=== PATIENT | male | born 1970 | race Caucasian/White ===

== ENCOUNTER 2016-07-28 14:57 | Emergency (ER) | payer MEDICAID, OTHER ==
[~2016-07-28 14:57] MED LIST: AMOX500T PO; ULTR50TA PO; Z.0.NO CURRENT MEDS
[2016-07-28 15:00] VITALS: BP 100/67; PULSE 91; RESP 14; TEMP 98.1
[2016-07-28 16:05] VITALS: O2SAT 98
--- NOTE | 2016-07-28 16:10 | PD ---
HPI Chief Complaint: Lump, Cyst, Hernia Time Seen by Provider: 16:02 Travel History International Travel<30 days: No Contact w/Intl Traveler<30days: No Traveled to known affect area: No History of Present Illness HPI 46 year old male presents to the emergency department for evaluation of pain to his gluteal cleft. Patient states this started approximately 4 days ago. He states he has had intermittent similar issues in the past. He states he has had I&D procedures done. He denies any fevers. Patient is deaf and communicates with sign language. History and physical are done the official room designer. Patient denies having any chronic medical problems or taking any prescribed medications. He has no known allergies. Patient currently rates pain 10/13. No other complaints. [facility] Social History Alcohol Use: No Tobacco Use: No Substance Use: No Allergies-Medications (Allergen,Severity, Reaction): Coded Allergies: No Known Allergies (Unverified , 07/28/16) Reported Meds & Prescriptions Reported Meds & Active Scripts Active Lortab (Hydrocodone-Acetaminophen) 5-325 Mg Tab 1 Tab PO Q6H PRN Review of Systems Except as stated in HPI: all other systems reviewed are Neg Physical Exam Narrative GENERAL: Well-developed well-nourished male patient, ambulatory. Afebrile. SKIN: Warm and dry. Pilonidal cyst noted that measures approximately [-]. HEAD: Normocephalic. Atraumatic. EYES: No scleral icterus. No injection or drainage. NECK: Supple, trachea midline. No JVD or lymphadenopathy. CARDIOVASCULAR: Regular rate and rhythm without murmurs, gallops, or rubs. RESPIRATORY: Breath sounds equal bilaterally. No accessory muscle use. GASTROINTESTINAL: Abdomen soft, non-tender, nondistended. MUSCULOSKELETAL: No cyanosis, or edema. Data Data Last Documented VS Vital Signs Date Time Temp Pulse Resp B/P Pulse Ox O2 Delivery O2 Flow Rate FiO2 07/28/16 16:05 98 Room Air 07/28/16 15:00 98.1 91 14 100/67 Orders Wound Culture And Gram Stain (07/28/16 16:02) Lidocai-Epi 1%-1:100,000 Inj (Xylocaine- (07/28/16 16:15) Acetamin-Hydrocod 325-7.5 Mg ([place] 7.5 (07/28/16 17:15) [facility] Medical Decision Making Medical Screen Exam Complete: Yes Emergency Medical Condition: Yes Medical Record Reviewed: Yes Differential Diagnosis Pilonidal cyst versus abscess versus cellulitis Narrative Course 46 year old male presents to the emergency department for evaluation of pain and swelling to the gluteal cleft. Physical exam is consistent with a pilonidal cyst. History and physical are done with the official clerical assigner. He does give consent for I&D procedure. Patient will be discharged with a prescription for ibuprofen and clindamycin. He is instructed on proper wound care. I&D procedure was completed. Minimal output was able to be obtained. Patient is instructed to follow-up with colorectal surgeon. He is given Lortab and clindamycin in the emergency department. Patient will be discharged with a prescription for Lortab and clindamycin. Procedures Procedure Narrative INCISION AND DRAINAGE OF ABSCESS: The area was prepped and was sterilely draped. A subcutaneous wheal of 1% Xylocaine with epinephrine with a total number 5 mL was used to anesthetize the area. The area was properly anesthetized. A number 11 scalpel was used to make a 1 -cm incision across the area of the abscess. Cultures were obtained. The abscess was drained an irrigated with normal saline. Quarter inch iodoform packing was placed in the wound. Sterile dressing applied. Patient advised to have packing removed in two days. Diagnosis Primary Impression: Pilonidal cyst with abscess Referrals: Colon Rectal Specialist call for appointment Patient Instructions: General Instructions, Pilonidal Cyst (ED) Additional Instructions: Clean twice daily with soap and water. Apply [id number] antibiotic ointment. Take antibiotic as directed until gone. Take Lortab as instructed as needed for pain. Caution this can make you drowsy so do not drive after taking. Packing removal in 2 days. Follow up with colorectal surgeon. Return to the emergency department for any acute worsening of symptoms. Med/Other Pt SpecificInfo: Prescription(s) given Scripts Clindamycin 300 Mg Sgm439 Mg PO Q6H 10 Days Ref 0 Prov:Ivis Trejo 07/28/16 Hydrocodone-Acetaminophen (Lortab)5-325 Mg Tab1 Tab PO Q6H PRN (PAIN) #12 TAB Ref 0 Prov:Juanito Tapia MD 07/28/16 Disposition: 01 DISCHARGE HOME Condition: Stable Ivis Trejo Jul 28, 2016 16:10
[2016-07-28] MEDS ORDERED: LIDOCAINE 1%/EPINEPHrine 1:100,000 SOLN 20 ML VIAL INFIL ONE (16:15)
[2016-07-28] MEDS ORDERED: HYDR-3533 PO (17:06)
[2016-07-28] MEDS ORDERED: CLIN1CAP6 PO (17:11)
[2016-07-28] MEDS ORDERED: CLINDAMYCIN 150 MG CAP PO ONE (17:15)
[2016-07-28] MEDS ORDERED: ACETAMINOPHEN/HYDROcodone 325 MG/7.5 MG TAB PO ONE (17:15)
== END 2016-07-28 17:33 | disposition home or self-care (01) ==
LOC: NEPB 14:57
DX: L05.01 Pilonidal cyst with abscess (principal); H91.90 Unspecified hearing loss, unspecified ear
CPT/HCPCS: 10061; 87070; 87205

== ENCOUNTER 2016-07-30 09:26 | Emergency (ER) | payer MEDICAID ==
[~2016-07-30] VITALS: Ht 175.3 cm; Wt 65.0 kg
[~2016-07-30 09:26] MED LIST changes: -AMOX500T PO; +CLIN1CAP6 PO; +HYDR-3533 PO; -ULTR50TA PO; -Z.0.NO CURRENT MEDS
[2016-07-30 09:34] VITALS: BP 141/75; PULSE 98; RESP 16; TEMP 98.2; O2SAT 98
--- NOTE | 2016-07-30 10:19 | PD ---
HPI Chief Complaint: Wound/Suture/Staple Re-Check Time Seen by Provider: 10:19 Travel History International Travel<30 days: No Contact w/Intl Traveler<30days: No Traveled to known affect area: No History of Present Illness HPI 46-year-old male presents to the emergency department for reevaluation of pilonidal cyst and packing removal. Patient had pilonidal cyst incised and drained 2 days ago in the emergency department by me. He was discharged prescription for clindamycin and Lortab. However, he states that he does not have any money to get these prescriptions until August 03 has not started either of them. The patient is taking ibuprofen [id number]. He still reports pain to the area. No fevers or chills. He has no chronic medical problems. Takes no other medications. He denies any other complaints at this time. Patient is deaf and history and physical are done through official home health care respiratory therapist with Italian sign language through [email or web address]. [facility] Social History Alcohol Use: No Tobacco Use: No Substance Use: No Allergies-Medications (Allergen,Severity, Reaction): Coded Allergies: No Known Allergies (Unverified , 07/30/16) Reported Meds & Prescriptions Reported Meds & Active Scripts Active Clindamycin (Clindamycin HCl) 300 Mg Cap 300 Mg PO Q6H 10 Days Lortab (Hydrocodone-Acetaminophen) 5-325 Mg Tab 1 Tab PO Q6H PRN Review of Systems Except as stated in HPI: all other systems reviewed are Neg Physical Exam Narrative GENERAL: Well-nourished, well-developed male patient, ambulatory. Afebrile. SKIN: Focused skin assessment warm/dry. Packing noted to pilonidal cyst. Packing is removed without difficulty. The wound is irrigated with normal saline. No surrounding erythema. HEAD: Normocephalic. Atraumatic. EYES: No scleral icterus. No injection or drainage. NECK: Supple, trachea midline. No JVD or lymphadenopathy. CARDIOVASCULAR: Regular rate and rhythm without murmurs, gallops, or rubs. RESPIRATORY: Breath sounds equal bilaterally. No accessory muscle use. Lungs sounds are clear to auscultation. GASTROINTESTINAL: Abdomen soft, non-tender, nondistended. MUSCULOSKELETAL: No cyanosis, or edema. BACK: Nontender without obvious deformity. No CVA tenderness. Data Data Last Documented VS Vital Signs Date Time Temp Pulse Resp B/P Pulse Ox O2 Delivery O2 Flow Rate FiO2 07/30/16 09:34 98.2 98 16 141/75 98 MDM Medical Decision Making Medical Screen Exam Complete: Yes Emergency Medical Condition: Yes Medical Record Reviewed: Yes Differential Diagnosis Wound reevaluation versus pilonidal cyst versus packing removal Narrative Course 46-year-old male presents to the emergency department for packing removal pilonidal cyst. He has not filled his antibiotic or pain medication due to lack of money. Patient and his state they have absolutely no money at this time to get any prescription. Due to this, I will place the patient on Bactrim due to it being free at [facility] so he can get antibiotics started. The packing is removed and the cyst is irrigated with normal saline. He is to follow up with a colorectal surgeon. He verbalizes agreement and understanding. Patient is instructed on proper wound care. He is to return for any acute worsening of symptoms. Diagnosis Primary Impression: Pilonidal cyst with abscess Additional Impression: Encounter for wound re-check Patient Instructions: General Instructions, Pilonidal Cyst (ED) Additional Instructions: Bactrim is free at [facility]. I gave you the first dose here so start this this evening. Clean twice daily with soap and water and apply [id number] antibiotic ointment. Keep clean and dry. Follow-up with colorectal surgeon. Return to the emergency department for any acute worsening of symptoms. Med/Other Pt SpecificInfo: Prescription(s) given Scripts Sulfamethoxazole-Trimethoprim (Bactrim DS)800-160 Mg Tab1 Tab PO BID #20 TAB Ref 0 Prov:Ivis Trejo 07/30/16 Disposition: 01 DISCHARGE HOME Condition: Stable Ivis Trejo Jul 30, 2016 10:19
[2016-07-30] MEDS ORDERED: BACT800T5 PO (10:23)
[2016-07-30] MEDS ORDERED: SULFAMETHOXAZOLE-TRIMETHOPRIM DS 800-160 MG TAB PO ONE (10:30)
== END 2016-07-30 10:44 | disposition home or self-care (01) ==
LOC: NEPB 09:26
DX: L05.91 Pilonidal cyst without abscess (principal)
CPT/HCPCS: 99282